=== PATIENT | male | born 1950 | race Caucasian/White ===

== ENCOUNTER → 2022-07-02 | Outpatient (CLI) | payer MEDICARE, BC ==
[~2022-07-02] MED LIST: ALLO300 PO; FINA5 PO
== END | disposition home or self-care (01) ==
LOC: LAB SHORT 11:58
DX: C44.629 Squamous cell carcinoma of skin of left upper limb, including shoulder (principal)
CPT/HCPCS: 88305

== ENCOUNTER → 2022-07-08 | Outpatient (CLI) | payer MEDICARE, BC | END | disposition home or self-care (01) | LOC: PLD 14:59 → LAB SHORT 14:59 | DX: C44.629 Squamous cell carcinoma of skin of left upper limb, including shoulder (principal); L85.8 Other specified epidermal thickening | CPT/HCPCS: 88305 ==